=== PATIENT | male | born 2000 | race African-American/Black ===

== ENCOUNTER 2019-01-10 19:22 | Emergency (ER) | payer OTHER, SELFPAY ==
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
[2019-01-10 19:32] VITALS: BP 110/69; PULSE 76; RESP 18; TEMP 36.6; O2SAT 100; BMI 22.0
[2019-01-10 20:21] LABS: Appearance Urine UA CLEAR; Bilirubin Urine UA NEGATIVE (NEGATIVE); Color Urine UA YELLOW; Glucose Urine UA NEGATIVE (Negative); Ketones Urine UA NEGATIVE (NEGATIVE); Leukocyte Esterase Urine UA NEGATIVE (NEGATIVE); Nitrite Urine UA NEGATIVE (Negative); Occult Blood Urine UA NEGATIVE (Negative); Protein Urine UA NEGATIVE (Negative); Specific Gravity Urine UA 1.025 (1.000-1.035); Urobilinogen Urine UA 0.2 E.U./dL (0.2)
[2019-01-10 20:35] LABS: Bacteria Urine Occasional (0-1); Culture Indicated Urine Cult Not Indicated; Mucus Urine 1+ (Negative); RBC Urine 0-1/HPF (0-5/HPF); Squamous Epithelial Cell Urine None Seen (0-5/HPF); WBC Urine 1-5/HPF (0-5/HPF)
[2019-01-10 21:50] LABS: Urine N gonorrhoeae NOT DETECTED
[2019-01-10 21:55] LABS: Urine Chlamydia DETECTED
[2019-01-10 22:07] VITALS: BP 118/64; PULSE 62; RESP 16; O2SAT 99
== END 2019-01-10 22:29 | disposition home or self-care (01) ==
PROVIDERS: Emergency Provider Internal Medicine
DX: Z20.2 Contact with and (suspected) exposure to infections with a predominantly sexual mode of transmission (principal)
CPT/HCPCS: 81001; 87491; 87591; 99282; 99283

== ENCOUNTER 2019-01-21 18:36 | Emergency (ER) | payer OTHER, SELFPAY ==
[2019-01-21 18:40] VITALS: BP 118/96; PULSE 71; RESP 18; TEMP 37.1; O2SAT 99; BMI 22.7
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
== END 2019-01-21 19:23 | disposition home or self-care (01) ==
PROVIDERS: Emergency Provider Emergency Medicine
DX: F07.81 Postconcussional syndrome (principal); V43.52XD Car driver injured in collision with other type car in traffic accident, subsequent encounter
CPT/HCPCS: 99282; 99283